=== PATIENT | male | born 1970 | race Caucasian/White ===

== ENCOUNTER 2019-08-01 14:13 | Emergency (ER) | payer BC ==
[~2019-08-01] VITALS: Ht 160 cm; Wt 72.6 kg
[2019-08-01 14:13] VITALS: BP_SYST 156
--- NOTE | 2019-08-01 14:20 | NUR ---
Patient triaged and placed in waiting room. VSS and patient appears in no acute distress at this time. Accompanied by SELF, awaiting available bed, and MD notified of need for MSE.
[2019-08-01 15:34] LABS: BASOPHILS # (AUTO) 0.1 K/uL (0.0-0.2); BASOPHILS % (AUTO) 0.6 % (0.0-2.0); EOSINOPHILS # (AUTO) 0.5 K/uL (0.0-0.4); EOSINOPHILS % (AUTO) 4.6 % (0.0-4.0); HEMATOCRIT 45.1 % (36-54); HEMOGLOBIN 15.7 g/dL (14.0-18.0); LYMPHOCYTES # (AUTO) 2.7 K/uL (1.0-5.5); LYMPHOCYTES % (AUTO) 27.4 % (20.5-51.5); MEAN CORPUSCULAR HEMOGLOBIN 31 pg (27-31); MEAN CORPUSCULAR HGB CONC 35 % (32-36); MEAN CORPUSCULAR VOLUME 89 fL (79.0-98.0); MONOCYTES % (AUTO) 9.5 % (1.7-9.3); NEUTROPHILS # (AUTO) 5.8 K/uL (1.8-7.7); NEUTROPHILS % (AUTO) 57.9 % (40.0-70.0); PLATELET COUNT (AUTO) 300 K/uL (130-430); RED BLOOD CELL COUNT(AUTO) 5.09 MIL/uL (4.2-6.2); RED CELL DISTRIBUTION WIDTH 13.3 % (9.0-15.0)
[2019-08-01 15:39] LABS: CALCIUM 9.3 mg/dL (8.4-11.0); CREATININE 1.28 mg/dL (0.55-1.30); POTASSIUM 3.6 mmol/L (3.5-5.1)
[2019-08-01 15:44] LABS: ALBUMIN 4.3 g/dL (3.4-4.8); TOTAL BILIRUBIN 0.5 mg/dL (0.0-1.0)
--- NOTE | 2019-08-01 16:36 | NUR ---
BROUGHT BACK TO BED #6 AND REPORT GIVEN TO ZAHEER
--- NOTE | 2019-08-01 17:10 | NUR ---
Patient presented to ER C/O aabdominal pain. Patient A&Ox4, skin pink & warm, ambulatory to ER pain 10/06, denies N/V/D, denies urinary frequency/pain, denies changes in appetite. Patient states pain to midline abdominal pain, below belly button x1 week.
--- NOTE | 2019-08-01 17:20 | NUR ---
ER Dr. Sellers at bedside examining patient.
--- NOTE | 2019-08-01 17:21 | NUR ---
ER at bedside examining patient.
[2019-08-01 17:49] VITALS: BP_SYST 146
--- NOTE | 2019-08-01 17:50 | NUR ---
Patient given written and verbal discharge instructions and verbalizes understanding. ER MD discussed with patient the results and treatment provided. Patient in stable condition. ID arm band removed. Rx of leoncio Walters, willieiven. Patient educated on pain management and to follow up with PMD. Pain Scale 3/10 tolerable for pt. Opportunity for questions provided and answered. Medication side effect fact sheet provided.
== END 2019-08-01 17:50 | disposition home or self-care (01) ==
LOC: SED 14:13
DX: K57.92 Diverticulitis of intestine, part unspecified, without perforation or abscess without bleeding (principal); F17.290 Nicotine dependence, other tobacco product, uncomplicated
CPT/HCPCS: 36415; 80053; 83690-TC; 85025; 99284

== ENCOUNTER 2021-07-26 10:07 | Emergency (ER) | payer BC ==
[~2021-07-26] VITALS: Ht 162.6 cm; Wt 77.1 kg
[2021-07-26 10:18] VITALS: BP_SYST 123
--- NOTE | 2021-07-26 10:25 | NUR ---
Patient to ER bed 5 to gown for evaluation. Side rails up. Report given to Taylor HERNANDEZ.
--- NOTE | 2021-07-26 10:28 | NUR ---
ER at bedside examining patient.
[2021-07-26 10:48] LABS: BASOPHILS # (AUTO) 0.1 K/uL (0.0-0.2); BASOPHILS % (AUTO) 0.5 % (0.0-2.0); EOSINOPHILS # (AUTO) 0.5 K/uL (0.0-0.4); EOSINOPHILS % (AUTO) 4.5 % (0.0-4.0); HEMATOCRIT 45.5 % (36-54); HEMOGLOBIN 15.5 g/dL (14.0-18.0); LYMPHOCYTES # (AUTO) 2.7 K/uL (1.0-5.5); LYMPHOCYTES % (AUTO) 26.6 % (20.5-51.5); MEAN CORPUSCULAR HEMOGLOBIN 30 pg (27-31); MEAN CORPUSCULAR HGB CONC 34 % (32-36); MEAN CORPUSCULAR VOLUME 88 fL (79.0-98.0); MONOCYTES # (AUTO) 0.9 K/uL (0.0-1.0); MONOCYTES % (AUTO) 8.4 % (1.7-9.3); NEUTROPHILS # (AUTO) 6.1 K/uL (1.8-7.7); PLATELET COUNT (AUTO) 307 K/uL (130-430); RED BLOOD CELL COUNT(AUTO) 5.19 MIL/uL (4.2-6.2); RED CELL DISTRIBUTION WIDTH 13.2 % (9.0-15.0); WHITE BLOOD COUNT (AUTO) 10.2 K/uL (4.8-10.8)
--- NOTE | 2021-07-26 10:49 | NUR ---
PT C/O LLQ ABDOMINAL PAIN HX OF DIVERTICULITIS STATES THIS FEELS SIMILAR. C/P 3/10 PAIN AT THIS TIME. STATES TOLERABLE. PENDING DISPO. NAD
[2021-07-26] MEDS ORDERED: TRAM50TA PO (10:56)
[2021-07-26] MEDS ORDERED: METR500T PO (10:56)
[2021-07-26] MEDS ORDERED: SULF1TAB48 PO (10:56)
--- NOTE | 2021-07-26 11:15 | NUR ---
Patient given written and verbal discharge instructions and verbalizes understanding. ER MD discussed with patient the results and treatment provided. Patient in stable condition. ID arm band removed. Rx of BACTRIM, TRAMADOL given. Patient educated on pain management and to follow up with PMD. Opportunity for questions provided and answered. Medication side effect fact sheet provided.
[2021-07-26 11:16] VITALS: BP_SYST 114
== END 2021-07-26 11:16 | disposition home or self-care (01) ==
LOC: SED 10:07
DX: K57.92 Diverticulitis of intestine, part unspecified, without perforation or abscess without bleeding (principal); Z79.899 Other long term (current) drug therapy
CPT/HCPCS: 36415; 76376; 85025; 99284